=== PATIENT | male | born 1975 | race Caucasian/White ===

== ENCOUNTER 2024-07-15 18:13 | Emergency (ER) | payer MEDICARE, MEDICAID ==
[~2024-07-15] VITALS: Ht 182.9 cm; Wt 77.1 kg
[2024-07-15] MEDS ORDERED: LAMO150T6 PO (19:03)
[2024-07-15] MEDS ORDERED: MIDO5TAB5 PO (19:03)
[2024-07-15] MEDS ORDERED: QUET100T PO (19:03)
[2024-07-15] MEDS ORDERED: CARB300C8 PO (19:03)
[2024-07-15] MEDS ORDERED: LORA0.5T48 PO ×2 (19:03)
[2024-07-15] MEDS ORDERED: LITH300T3 PO (19:03)
[2024-07-15] MEDS ORDERED: THIA100T68 PO (19:03)
[2024-07-15] MEDS: IV NORMAL SALINE 1000 ML BAG IV ONE (19:10)
[2024-07-15 19:17] LABS: BASOPHILS # (AUTO) 0.1 K/UL (0.0-0.2); BASOPHILS % (AUTO) 0.7 % (0.0-2.0); EOSINOPHILS # (AUTO) 0.4 K/uL (0.0-0.7); HEMATOCRIT 36.1 % (36.7-47.1); LYMPHOCYTES # (AUTO) 1.2 K/uL (0.8-4.8); LYMPHOCYTES % (AUTO) 15.7 % (20.5-51.5); MEAN CORPUSCULAR HEMOGLOBIN 30.5 uug (23.8-33.4); MEAN CORPUSCULAR HGB CONC 33 g/dL (32.5-36.3); MEAN CORPUSCULAR VOLUME 91.5 fL (73.0-96.2); MONOCYTES # (AUTO) 0.6 K/uL (0.1-1.30); MONOCYTES % (AUTO) 7.7 % (0.0-11.0); NEUTROPHILS # (AUTO) 5.4 K/uL (1.8-8.9); NEUTROPHILS % (AUTO) 70.9 % (38.5-71.5); PLATELET COUNT (AUTO) 313 K/uL (152-348); RED BLOOD CELL COUNT(AUTO) 3.94 MIL/uL (4.06-5.63); RED CELL DISTRIBUTION WIDTH 13.5 % (12.1-16.2); WHITE BLOOD COUNT (AUTO) 7.6 K/uL (3.6-10.2)
[2024-07-15 19:21] LABS: DIFFERENTIAL COMMENT 1
[2024-07-15 19:24] LABS: CALCIUM 8.4 mg/dL (8.5-10.1); CARBON DIOXIDE 25 mmol/L (21-32); CHLORIDE 108 mmol/L (98-107); CREATININE 0.9 mg/dL (0.6-1.3); GLUCOSE 108 mg/dL (74-106); POTASSIUM 3.6 mmol/L (3.5-5.1); SODIUM SERUM 141 mmol/L (136-145); UREA NITROGEN, BLOOD 14 mg/dL (7-18)
[2024-07-15 19:33] LABS: ALANINE AMINOTRANSFERASE 57 U/L (16-63); ALBUMIN 3.6 g/dL (3.4-5.0); ALKALINE PHOSPHATASE 70 U/L (50-136); ASPARTATE AMINOTRANSFERASE 20 U/L (15-37); BILIRUBIN,DIRECT 0.1 mg/dL (0.0-0.2); BILIRUBIN,TOTAL 0.3 mg/dL (0.2-1.0); TOTAL PROTEIN, SERUM 6.1 g/dL (6.4-8.2)
[2024-07-15 21:55] VITALS: BP 133/75; TEMP 97.8; O2SAT 98
== END 2024-07-15 22:00 | disposition home or self-care (01) ==
LOC: ER 18:13 → EDBD 18:13 → ER 22:00
DX: R53.1 Weakness (principal); F20.9 Schizophrenia, unspecified; Z79.899 Other long term (current) drug therapy; Z60.2 Problems related to living alone
CPT/HCPCS: 99284; 96360; 70450; 80076; 80048; 80178; 85025; 85730; 86850; 86900; 86901; 84484; 36415; 93005; 83605; J7040; 70030-TC; A4606; A4663